=== PATIENT | female | born 1960 | race Caucasian/White ===

== ENCOUNTER → 2025-02-09 | Day surgery (SDC) | payer BC ==
[~2025-02-09] VITALS: Ht 157.5 cm; Wt 63.5 kg
[~2025-02-09] MED LIST: ATOR10TA69 PO; BUPIVACAINE HCL/PF 0.5% (5MG/ML) 10ML ONE; CEFAZOLIN SODIUM 1000MG/VIAL ONE; DEXT 5%/0.45% NACL KCL 20MEQ/L 1,000 ML IV SCH; EPINEPHRINE 1:1000 1 MG/ML AMP ONE; FENTANYL CITRATE/PF 50MCG/ML 2ML VIAL ONE; HYDR-4001 MT; HYDROCODONE/ACETAMINOPHEN 5/325MG TABLET PO PRN; LACTATED RINGERS 1,000 ML IV ONE; LIDOCAINE HCL/EPINEPHRINE 1%-EPI 1:100,000 20ML VIAL ONE; MIDAZOLAM HCL 2 MG/2 ML VIAL ONE; MORPHINE SULFATE 4 MG/ML INJ (FOR IV/IM USE) IV PRN; NALOXONE HCL 0.4MG/ML VIAL IV PRN; ONDANSETRON HCL 4MG/2ML INJ IV PRN; PROPOFOL 200MG/20ML VIAL IV ONE; SODIUM CHLORIDE 0.9% 3ML FLUSH IVF SCH; TRIAMCINOLONE ACETONIDE 40MG/ML 1ML VIAL ONE
[2025-02-09 11:37] VITALS: BP 121/70; PULSE 52; RESP 14
[2025-02-09] MEDS: MORPHINE SULFATE 2 MG/ML INJ (NOT FOR IM USE) IV PRN (11:37)
== END | disposition home or self-care (01) ==
LOC: OR 07:00
DX: S83.242A Other tear of medial meniscus, current injury, left knee, initial encounter (principal); S83.282A Other tear of lateral meniscus, current injury, left knee, initial encounter; M17.12 Unilateral primary osteoarthritis, left knee; Z79.899 Other long term (current) drug therapy; Z91.011 Allergy to milk products; Z98.890 Other specified postprocedural states; E78.5 Hyperlipidemia, unspecified; X58.XXXA Exposure to other specified factors, initial encounter; Y93.89 Activity, other specified; Y92.89 Other specified places as the place of occurrence of the external cause; Y99.8 Other external cause status
CPT/HCPCS: 29882; 97161; 93005; 97116; 29881; J3010; J0665; J0690; J3490; J2004; J2250; J2704; J3301; J2270; C1713